=== PATIENT | male | born 1985 | race African-American/Black ===

== ENCOUNTER 2016-08-08 07:15 | Emergency (ER) | payer MEDICAID ==
[~2016-08-08] VITALS: Ht 188 cm; Wt 94.8 kg
[2016-08-08 07:22] VITALS: BP 147/73
--- NOTE | 2016-08-08 08:38 | NUR ---
PT AMBULATED TO BED 7
--- NOTE | 2016-08-08 08:50 | NUR ---
31M BIB MOTHER C/O ALTERED MENTAL STATUS; PT STATES " I'M DELUSIONAL. I HAD A DREAM. IT BECAME REAL. I FEEL LIKE MY DREAM IS HAUNTING ME, SO MY MOTHER BROUGHT ME TO A SAFE PLACE"; PT AA&OX4 AT THIS TIME, CALM, STATES HAS NO IDEAS OF SUICIDAL IDEAION, HURTING SELF, OR OTHERS AT THIS TIME; PT CALM/COOPERATIVE AT THIS TIME. BL LUNG SOUNDS CLEAR, RR EVEN/UNLABORED, SKIN IS WARM/DRY/INTACT AT THIS TIME; PT STATES NO N/V/D AT THIS TIME; PT PLACED ON MONITOR, RESTING IN BED W/ HOB ELEVATED AND IN LOWEST POSITION; POSITIONED FOR COMFORT; ER MD MADE AWARE OF STATUS. WILL CONTINUE TO MONITOR.
--- NOTE | 2016-08-08 09:27 | NUR ---
ER MD DR. GERMAN EVALUATING PT AT BEDSIDE.
[2016-08-08] MEDS ORDERED: LORazepam 1 MG TAB PO ONE (09:40)
[2016-08-08 09:42] LABS: AMPHETAMINE, URINE NEG. ng/ml (NEG <=1000); BARBITURATE, URINE NEG. ng/ml (NEG <=200); BENZODIAZEPINE, URINE NEG. ng/mL (NEG <=200); CANNABINOID, URINE POS. ng/mL (NEG <=50); COCAINE, URINE NEG. ng/mL (NEG <=300); OPIATE, URINE NEG. ng/mL (NEG <=2000); PHENCYCLIDINE SCREEN,URINE NEG. ng/mL (NEG <=25)
[2016-08-08 09:59] VITALS: BP 136/73
--- NOTE | 2016-08-08 09:59 | NUR ---
Patient discharged with v/s stable. Written and verbal after care instructions given and explained. Patient alert, oriented and verbalized understanding of instructions. Ambulatory with to car. All questions addressed prior to discharge. ID band removed. Patient advised to follow up with PMD. Rx of ATIVAN 1MG TAB & ALBUTEROL 90MCG/ACTUATION given. Patient educated on indication of medication including possible reaction and side effects. Opportunity to ask questions provided and answered.
== END 2016-08-08 09:59 | disposition home or self-care (01) ==
LOC: MED 07:15
DX: F19.10 Other psychoactive substance abuse, uncomplicated (principal); F12.90 Cannabis use, unspecified, uncomplicated; F99 Mental disorder, not otherwise specified
CPT/HCPCS: 80305; 81002; 99283

== ENCOUNTER 2018-02-01 23:14 | Emergency (ER) | payer SELFPAY ==
[~2018-02-01] VITALS: Ht 190.5 cm; Wt 105.7 kg
[2018-02-01 23:16] VITALS: BP 137/84
--- NOTE | 2018-02-01 23:26 | NUR ---
PT TO ER BED 2
[2018-02-02 00:40] VITALS: BP 126/74
--- NOTE | 2018-02-02 00:40 | NUR ---
Note [email or web address] in ED - 02/02/18 at 0053 by [facility] Patient discharged with v/s stable. Written and verbal after care instructions given and explained. Patient verbalized understanding. Ambulatory with steady gait. All questions addressed prior to discharge. Advised to follow up with PMD.
--- NOTE | 2018-02-02 00:42 | NUR ---
Dr. Nguyen evaluating patient at bedside.
--- NOTE | 2018-02-02 00:46 | NUR ---
Patient discharged with v/s stable. Written and verbal after care instructions given and explained. Patient verbalized understanding. Ambulatory with steady gait. All questions addressed prior to discharge. Advised to follow up with PMD.
== END 2018-02-02 00:46 | disposition home or self-care (01) ==
LOC: MED 23:14
DX: F20.9 Schizophrenia, unspecified (principal); R41.82 Altered mental status, unspecified
CPT/HCPCS: 99281

== ENCOUNTER 2018-02-02 15:02 | Emergency (ER) | payer OTHER ==
[~2018-02-02] VITALS: Ht 188 cm; Wt 105.2 kg
[2018-02-02 15:13] VITALS: BP 152/65
--- NOTE | 2018-02-02 15:23 | NUR ---
PATIENT PRESENTS TO ED TO BE EVALUATED BY DOCTOR TO KNOW IF HE HAS ALTERED BEHAVIOR. .PT STATES HE HAS BEEN STRUGGLING FOR LUNG AND HAS PRESSURE. EXPERIENCING ANXIETY FOR A WHILE. STATES THAT HE WANT TO BE RELAXED. DENIES N/V/D; SKIN IS PINK/WARM/DRY; AAOX3 WITH EVEN AND STEADY GAIT; PT DENIES ANY FEVER, CP, SOB, OR COUGH AT THIS TIME; PATIENT STATES PAIN OF 0/10 AT THIS TIME; VSS; PATIENT POSITIONED FOR COMFORT; HOB ELEVATED; BEDRAILS UP X2; BED DOWN. ER MD MADE AWARE OF PT STATUS.
--- NOTE | 2018-02-02 15:52 | NUR ---
PT NOTED TO BE MOVING AROUND BED QUIETLY AFTER PULLING CURTAIN AROUND THE BED. PT EDUCATED HE NEEDS TO BE EVALUATED AND NOT ALLOWED TO STAY BEHIND THE CURTAIN. REQUESTED TO LAY OR SIT IN BED. PT AGREED. ON CONTINUOUS EVALUATION.
[2018-02-02 16:43] LABS: BASOPHILS % (AUTO) 0.3 % (0.0-2.0); EOSINOPHILS % (AUTO) 0.1 % (0.0-4.0); HEMATOCRIT 38.7 % (36-52); HEMOGLOBIN 12.9 g/dL (12.0-18.0); LYMPHOCYTES # (AUTO) 1.5 K/uL (2.0-11.5); LYMPHOCYTES % (AUTO) 16.8 % (20.5-51.1); MEAN CORPUSCULAR HEMOGLOBIN 30 pg (27-31); MEAN CORPUSCULAR HGB CONC 33 g/dL (33-37); MEAN CORPUSCULAR VOLUME 89.8 fL (80-94); MONOCYTES # (AUTO) 0.7 K/uL (0.8-1.0); MONOCYTES % (AUTO) 8.4 % (1.7-9.3); NEUTROPHILS # (AUTO) 6.6 K/uL (1.8-7.7); NEUTROPHILS % (AUTO) 74.4 % (42.2-75.2); PLATELET COUNT (AUTO) 284 K/uL (140-450); RED BLOOD CELL COUNT(AUTO) 4.31 MIL/uL (4.20-6.10); RED CELL DISTRIBUTION WIDTH 13.2 % (11.6-13.7); WHITE BLOOD COUNT (AUTO) 8.9 K/uL (4.8-10.8)
[2018-02-02 16:57] LABS: BARBITURATE, URINE NEG. ng/ml (NEG <=200); BENZODIAZEPINE, URINE NEG. ng/mL (NEG <=200); CANNABINOID, URINE POS. ng/mL (NEG <=50); COCAINE, URINE NEG. ng/mL (NEG <=300); OPIATE, URINE NEG. ng/mL (NEG <=2000); PHENCYCLIDINE SCREEN,URINE NEG. ng/mL (NEG <=25)
[2018-02-02 17:10] LABS: ANION GAP 16.7 (8-16); CARBON DIOXIDE 23.9 mmol/L (21-32); CHLORIDE 101 mmol/L (98-107); CREATININE 0.9 mg/dL (0.7-1.3); GFR ARICAN-AMERICAN 126 mL/min (>90); GLUCOSE 90 mg/dL (74-106); POTASSIUM 3.6 mmol/L (3.5-5.1); SODIUM SERUM 138 mmol/L (136-145); UREA NITROGEN, BLOOD 7 mg/dL (7-18)
[2018-02-02 17:17] LABS: ALBUMIN 4.3 g/dL (3.4-5.0); ASPARTATE AMINOTRANSFERASE 20 U/L (15-37); TOTAL BILIRUBIN 1.6 mg/dL (0.0-1.0)
[2018-02-02 17:20] LABS: ACETAMINOPHEN < 0.5 ug/ml (10-30); SALICYLATE < 2.8 mg/dL (2.8-20.0)
--- NOTE | 2018-02-02 17:40 | NUR ---
PT NOTED WITH MOVING AROUND OTHER BEDS. MADE AWARE THAT HE WOULD NOT BE MOVING AROUND OTHER BEDS AND PATIENT'S ROOM BECAUSE OF OTHJER PATIENT'S PRIVACY. PT CAME TO HIS ROOM.
[2018-02-02 17:42] LABS: APPEARANCE,URINE CLEAR (CLEAR); COLOR,URINE YELLOW (YELLOW); UGLUCOSE NEGATIVE (NEGATIVE)
[2018-02-02 17:43] LABS: BILIRUBIN,URINE NEGATIVE (NEGATIVE); BLOOD, URINE NEGATIVE (NEGATIVE); LEUKOCYTE ESTERASE ,URINE NEGATIVE (NEGATIVE); NITRITE, URINE NEGATIVE (NEGATIVE)
--- NOTE | 2018-02-02 19:11 | NUR ---
REPORT GIVEN TO TRANSPORTATION PLANNING ENGINEER RN FOR CONTINUITY OF CARE.
--- NOTE | 2018-02-02 19:14 | NUR ---
TELEPSYCH, DR. ESCALANTE, SPOKE WITH DR. GONZALEZ
--- NOTE | 2018-02-02 19:15 | NUR ---
PT SITTING UP IN BED, VSS. PT IS WAITING FOR TELEPSYCH ASSESSMENT. PT IS ANXIOUS. ER MD MADE AWARE OF STATUS.
--- NOTE | 2018-02-02 19:22 | NUR ---
Telepsych, Dr. Pichardo, speaking with patient through remote communication
--- NOTE | 2018-02-02 19:43 | NUR ---
TELEPSYCH, DR. ESCALANTE, SPOKE WITH DR. HAYWARD
--- NOTE | 2018-02-02 19:46 | NUR ---
DR. ESCALANTE SPOKE WITH PATIENT MOTHER ON THE PHONE
--- NOTE | 2018-02-02 19:55 | NUR ---
PT AMBULATED TO THE RESTOOM. PT TOLERATED WELL.
--- NOTE | 2018-02-02 19:56 | NUR ---
TELEPSYCH, DR. ESCALANTE, SPOKE WITH DR. HAYWARD
--- NOTE | 2018-02-02 20:35 | NUR ---
Dr. Stein evaluating patient at bedside.
[2018-02-02 21:00] VITALS: BP 127/65
== END 2018-02-02 21:00 | disposition home or self-care (01) ==
LOC: MED 15:02
DX: Z04.6 Encounter for general psychiatric examination, requested by authority (principal); R46.3 Overactivity
CPT/HCPCS: 36415; 80053; 80305; 81003; 85025; 99283; G0480; G0482